=== PATIENT | female | born 1945 | race Caucasian/White ===

== ENCOUNTER 2018-07-01 07:30 | Inpatient (IN) ==
--- NOTE | 2018-06-25 09:46 | EKG Report ---
Test Performed on : 06/25/2018 09:34:52 AM Test Reason : PRE SURGERY Blood Pressure : / mmHG Vent. Rate : 067 BPM Atrial Rate : 067 BPM P-R Int : 162 ms QRS Dur : 100 ms QT Int : 418 ms P-R-T Axes : 074 088 074 degrees QTc Int : 441 ms Normal sinus rhythm. Cannot rule out Anterior infarct , age undetermined Abnormal ECG No previous ECGs available Confirmed by Kelvin PARKS, Abdelrahman Phan ([id number]) on 06/25/2018 5:36:02 PM
[2018-06-25 10:58] LABS: URINE SOURCE CLEAN CATCH
[2018-06-25 11:03] LABS: BASO# 0.04 X1000 (0.0-0.2); BASO% 0.4 % (0.0-0.8); EOS% 2.1 % (0.0-10.0); HEMATOCRIT 38.1 % (37.0-47.0); HEMOGLOBIN 12.6 g/dL (12.0-16.0); IMM GRAN# 0.03 X1000 (0.0-0.04); IMM GRAN% 0.3 % (0.0-0.5); LYMPH% 25.3 % (20.5-51.1); MCHC 33.1 g/dL (33-37); MCV 93.6 FL (81-99); MONO# 0.65 X1000 (0.11-0.59); MONO% 6.8 % (1.7-9.3); MPV 10.2 FL (7.4-10.4); NEUT# 6.17 X1000 (1.4-6.5); NEUT% 65.1 % (42.2-75.2); PLT 259 X1000 (130-400); RBC 4.07 XMIL (4.2-5.4); RDW 12.4 % (11.5-14.5); WBC 9.49 X1000 (4.8-10.8)
[2018-06-25 11:09] LABS: BILIRUBIN URINE NEGATIVE (NEGATIVE); BLOOD URINE NEGATIVE (NEGATIVE); COLOR YELLOW; GLUCOSE URINE NEGATIVE (NEGATIVE); KETONE URINE NEGATIVE (NEGATIVE); LEUKOCYTES URINE NEGATIVE (NEGATIVE); NITRITE URINE NEGATIVE (NEGATIVE); PROTEIN URINE NEGATIVE (NEGATIVE); TURBIDITY URINE CLEAR (CLEAR); UR EPITHELIAL CELLS <10 /HPF (<10); URINE BACTERIA NEGATIVE /HPF; URINE RBC <10 /HPF (<10); URINE WBC <10 /HPF (<10); UROBILINOGEN URINE NORMAL (NORMAL)
[2018-06-25 11:10] LABS: INR 0.91; PTT 26.3 Seconds (22.3-41.8)
[2018-06-25 12:01] LABS: AGAP 12; BUN 17 mg/dL (8-22); CALCIUM 8.4 mg/dL (8.8-10.2); CHLORIDE 108 mmol/L (98-107); COSMO 284; CREATININE 0.7 mg/dL (0.5-0.9); ESTIMATED GFR > 60; GLUCOSE 93 mg/dL (70-104); POTASSIUM 4.6 mmol/L (3.5-5.1); SODIUM 142 mmol/L (136-145); TCO2 22 mmol/L (25-35)
[2018-07-15] MEDS ORDERED: COLACE ONE (06:17)
[2018-07-15] MEDS ORDERED: REGLAN ONE (06:17)
[2018-07-15] MEDS ORDERED: PEPCID ONE (06:17)
[2018-07-15] MEDS ORDERED: LYRICA ONE (06:18)
[2018-07-15] MEDS ORDERED: KEFZOL 2 GM/D5W 2 GM/50 ML IVPB ONE (06:18)
[2018-07-15] MEDS ORDERED: CELEBREX ONE (06:18)
[2018-07-15] MEDS ORDERED: LR 1,000 ML ONE (06:18)
[2018-07-15] MEDS ORDERED: DIPRIVAN 1% ONE (06:48)
[2018-07-15] MEDS ORDERED: NEOSPORIN G.U. IRRIGANT ONE (07:09)
[2018-07-15] MEDS ORDERED: SODIUM CHLORIDE 0.9% ONE (07:09)
[2018-07-15] MEDS ORDERED: TORADOL ONE (07:09)
[2018-07-15] MEDS ORDERED: SENSORCAINE-MPF 0.5%/EPI 1:200,000 ONE (07:09)
[2018-07-15] MEDS ORDERED: EXPAREL 1.3% ONE (07:09)
[2018-07-15] MEDS ORDERED: CYKLOKAPRON 1,000 MG/NS 1,000 MG/100 ML IVPB ONE (07:09)
[2018-07-15] MEDS ORDERED: DURAMORPH ONE (07:09)
[2018-07-15] MEDS ORDERED: QUELICIN (DOSE) ONE (08:05)
[2018-07-15] MEDS ORDERED: DECADRON ONE (08:05)
[2018-07-15] MEDS ORDERED: ZOFRAN ONE (08:05)
[2018-07-15] MEDS ORDERED: OFIRMEV 1000 MG/ISOTONIC SOLN 1,000 MG/100 ML BOTTLE ONE (08:05)
[2018-07-15] MEDS ORDERED: XYLOCAINE-MPF 2% ONE (08:05)
[2018-07-15] MEDS ORDERED: ROBINUL ONE (08:19)
[2018-07-15] MEDS ORDERED: NEO-SYNEPHRINE ONE (08:23)
[2018-07-15] MEDS ORDERED: SODIUM CHLORIDE 0.9% 10 ML ONE (08:23)
[2018-07-15 08:48] LABS: URINE SOURCE CATH
[2018-07-15 08:51] LABS: BILIRUBIN URINE NEGATIVE (NEGATIVE); BLOOD URINE NEGATIVE (NEGATIVE); COLOR YELLOW; GLUCOSE URINE NEGATIVE (NEGATIVE); KETONE URINE NEGATIVE (NEGATIVE); LEUKOCYTES URINE NEGATIVE (NEGATIVE); NITRITE URINE NEGATIVE (NEGATIVE); PROTEIN URINE NEGATIVE (NEGATIVE); SP GRAVITY URINE 1.006; TURBIDITY URINE CLEAR (CLEAR); UROBILINOGEN URINE NORMAL (NORMAL)
[2018-07-15 08:52] LABS: UR EPITHELIAL CELLS <10 /HPF (<10); URINE BACTERIA NEGATIVE /HPF; URINE RBC <10 /HPF (<10); URINE WBC <10 /HPF (<10)
[2018-07-15] MEDS ORDERED: DEMEROL ONE (09:42)
[2018-07-15] MEDS ORDERED: NS 1,000 ML ONE (09:43)
--- NOTE | 2018-07-15 09:44 | OPERATIVE NOTE ---
PROCEDURE DATE: 07/15/2018 PREOPERATIVE DIAGNOSIS: Degenerative joint disease, left hip. POSTOPERATIVE DIAGNOSIS: Degenerative joint disease, left hip. PROCEDURE PERFORMED: Left anterior hip replacement. SURGEON: Nilay Ivy MD. CLEANER WALL: SUSAN Brody. Mr. Harris was necessary for proper retraction and manipulation of the extremity, as well as assistance with wound closure. ANESTHESIA: General. COMPLICATIONS: None. PROCEDURE IN DETAIL: A 72-year-old female who presents for a left anterior hip replacement. Risks, benefits, and no guarantees were discussed, and she was willing to proceed. She was taken to the operating room and satisfactory anesthesia obtained. The left hip was prepped and draped on the Jackson table in the usual sterile fashion. A time-out was taken to confirm operative site, procedure, and patient. An anterior approach to the left hip was undertaken with an incision starting 1 cm distal and lateral to the anterior-superior iliac spine and carried distally roughly 10 cm. Dissection was carried down through the skin and the fascia of the tensor fascia niya was split in line with the incision. Blunt dissection along the inner membrane of the tensor fascia niya was undertaken down to the anterior hip capsule. Cobra retractors were placed over the superior and inferior aspects of the femoral neck. A capsulotomy incision was made to expose the joint. Prior to osteotomy of the femoral head, the C-arm was used to make an AP pelvis to reference appropriate leg lengths prior to resection. Femoral neck osteotomy was made roughly 8 mm above the lesser trochanter and the femoral head removed. A small Cobra retractor was carefully placed directly on the anterior acetabular bone with care taken to protect the femoral nerve and neurovascular structures. Sequential reaming of the acetabulum up to a 51 reamer was undertaken. A DePuy [place] DuoFix BALLARD coated 52 outer diameter cup was then impacted into the acetabulum in roughly 45 degrees of abduction and 10-15 degrees of anteversion. This had secure press-fit fixation. An additional 25 length screw was placed through the cup for additional security, followed by a 36 mm inner diameter 0 degree polyethylene bearing. The bearing was impacted in the cup with secure fixation. The bearing cup and cup-bone interface were checked, and noted to be stable. Traction was released off the leg and the hip extended and externally rotated to facilitate broaching of the proximal femur. Sequential broaching of the proximal femur with the DePuy Actis broach was undertaken up to a size 3 stem. This had good axial and rotational stability. A standard neck collar with a 1.5 trial neck length head revealed good range of motion and stability as well as taoism of leg length. The trial stem was removed. An Actis size 3 collared stem impacted in the proximal femur with secure axial and rotational stability. A 36 mm ceramic head with a 1.5 neck length was impacted on this and the hip reduced. Final range of motion was assessed without any instability and no anterior instability with extension of the hip to roughly the floor, and external rotation of 50 to 65 degrees without anterior instability. The C-arm was used to verify accurate taoism of leg lengths as well as component position. The wound was copiously irrigated. A Hemovac drain was placed. The joint capsule was injected with Exparel for pain management. The fascia of the tensor was closed over the drain with a running V-Loc suture and the subcutaneous with 2-0 Vicryl, and the skin with skin lorena. Sterile dressings completed the closure. She was recovered from anesthesia and transferred to the recovery room in stable condition. No intraoperative complications were noted. Instrument count and sponge count were correct at the time of closure. cc: Marco Antonio Ivy MD
[2018-07-15] MEDS ORDERED: MORPHINE ONE (09:47)
[2018-07-15] MEDS ORDERED: OXY IR PO PRN ×2 (11:30)
[2018-07-15] MEDS ORDERED: MORPHINE IV PRN ×3 (11:30)
[2018-07-15] MEDS ORDERED: ZOFRAN IV PRN (11:30)
[2018-07-15] MEDS ORDERED: ZOFRAN ODT PO PRN (11:30)
[2018-07-15] MEDS: NS 1,000 ML IV SCH ×2 (13:37→21:34)
[2018-07-15] MEDS ORDERED: CYKLOKAPRON 1,000 MG in NS 100 ML IV ONE (13:50)
[2018-07-15] MEDS: KEFZOL 2 GM/D5W 2 GM/50 ML IVPB IV SCH ×2 (16:49→22:00)
[2018-07-15] MEDS: TYLENOL PO SCH ×2 (16:50→21:35)
[2018-07-15] MEDS: ULTRAM PO SCH ×2 (16:50→21:35)
--- NOTE | 2018-07-15 19:01 | PROGRESS NOTE ---
DATE: 07/15/2018 PROGRESS NOTE / POSTOP NOTE: Ms. Adams is seen status post anterior hip replacement. She is afebrile with stable vital signs. She is motor and sensory intact. She has good quad function with knee extension as well as knee flexion and dorsi and plantarflexion of the foot. The bandage is clean and dry. We will plan on mobilizing her tomorrow and discharge home tomorrow. cc: Marco Antonio Ivy MD
[2018-07-15] MEDS ORDERED: CELEBREX PO SCH (21:00)
[2018-07-15] MEDS ORDERED: COLACE PO SCH (21:00)
[2018-07-15] MEDS: CELEBREX PO SCH (21:35)
[2018-07-15] MEDS: PERIDEX MT SCH (21:36)
[2018-07-15] MEDS: FLONASE NAS SCH (22:00)
[2018-07-16] MEDS: NS 1,000 ML IV SCH (02:12)
[2018-07-16] MEDS: ULTRAM PO SCH ×2 (03:43→08:30)
[2018-07-16] MEDS: TYLENOL PO SCH ×2 (03:43→08:30)
[2018-07-16 06:30] LABS: HEMATOCRIT 28.4 % (37.0-47.0); HEMOGLOBIN 9.2 g/dL (12.0-16.0)
[2018-07-16 07:07] LABS: AGAP 10; BUN 18 mg/dL (8-22); CALCIUM 7.8 mg/dL (8.8-10.2); CHLORIDE 103 mmol/L (98-107); COSMO 279; CREATININE 0.7 mg/dL (0.5-0.9); ESTIMATED GFR > 60; GLUCOSE 156 mg/dL (70-104); POTASSIUM 4.3 mmol/L (3.5-5.1); SODIUM 137 mmol/L (136-145); TCO2 24 mmol/L (25-35)
--- NOTE | 2018-07-16 07:27 | PROGRESS NOTE ---
DATE: 07/16/2018 Ms. Adams was seen today status post total hip replacement. At the present time, she is afebrile with stable vital signs. The incision is clean and dry. She is to be mobilized today and the bandage changed, and all drains and lines removed. She can be discharged home today for outpatient followup. We will see her back in 2 weeks. She is discharged home on her regular medicines including aspirin twice a day for DVT prophylaxis and Archer 10 as needed for pain. She can return in the interim for any worsening signs or symptoms. cc: Marco Antonio Ivy MD
[2018-07-16 07:36] VITALS: BP 144/58
[2018-07-16] MEDS: PERIDEX MT SCH (08:31)
[2018-07-16] MEDS: CELEBREX PO SCH (08:31)
[2018-07-16] MEDS: FLONASE NAS SCH (08:38)
[2018-07-16] MEDS ORDERED: CALTRATE 600 + D PO SCH (09:00)
[2018-07-16] MEDS ORDERED: COLACE PO SCH (09:00)
[2018-07-16] MEDS ORDERED: ASPIRIN PO SCH (09:00)
[2018-07-16] MEDS ORDERED: COZAAR PO SCH (09:00)
[2018-07-16] MEDS ORDERED: PROZAC PO SCH (09:00)
[2018-07-16] MEDS ORDERED: ISOPTIN SR PO SCH (09:00)
[2018-07-16] MEDS ORDERED: PATIENT'S OWN MED PO SCH (09:00)
== END 2018-07-16 10:48 | disposition home health service (06) | DRG 470 ==
LOC: SURHOLD 07-15 04:54 → 4N 07-15 07:44
PROVIDERS: ADMIT Orthopaedic Surgery Adult Reconstructive Orthopaedic Surgery; ATTEND Orthopaedic Surgery Adult Reconstructive Orthopaedic Surgery
CPT/HCPCS: 76000; 80048; 81001; 85014; 85018; 85025; 85610; 85730; 86850; 86900; 86901; 88304; 88311; 93005; 93010; 94761; 94799; 97110; 97116; 97162; A9270; C9290; J0131; J0330; J0690; J1100; J1885; J2175; J2270; J2274; J2275; J2370; J2405; J7030; J7120; Q9974